=== PATIENT | female | born 1990 | race Two or more races ===

== ENCOUNTER 2016-11-03 21:18 | Inpatient (IN) | payer MEDICAID ==
[~2016-11-03] VITALS: Ht 165.1 cm; Wt 123.8 kg
[2016-11-03 22:17] LABS: Basophils # (auto) 0 uL; Basophils % (auto) 0.5 % (0.0-2.0); CONDITION Y; Eosinophils # (auto) 0.1 uL; Eosinophils % (auto) 1.6 % (0.0-7.0); Hemoglobin 11.9 g/dL (12.2-16.2); Lymphocytes # (auto) 1.2 uL; Lymphocytes % (auto) 13.5 % (10.0-50.0); Mean Corpuscular Hemoglobin 28.3 pg (28.0-32.0); Mean Platelet Volume 9.6 fL (7.4-10.4); Monocytes # (auto) 0.3 uL; Monocytes % (auto) 3.7 % (0.0-12.0); Neutrophils # (auto) 7.4 uL; Neutrophils % (auto) 80.7 % (37.0-80.0); Platelet Count (auto) 219 10^3/uL (140-450); Red Cell Distribution Width 14.1 % (11.6-16.0); White Blood Cell 9.2 10^3/uL (4.4-10.8)
[2016-11-03 22:30] LABS: Albumin 3.2 g/dL (3.4-5.0); Calcium 8.5 mg/dL (8.5-10.1); Potassium 3.8 mmol/L (3.5-5.1)
[2016-11-03 22:32] LABS: Bilirubin, Total 1.3 mg/dL (0.2-1.0); Total Protein 7.6 g/dL (6.4-8.2)
[2016-11-03 23:45] LABS: Urine Bilirubin Negative (Negative); Urine Blood TRACE /uL (Negative); Urine Color Yellow (Yellow); Urine Ketone Negative (Negative); Urine Mucus FEW (None Seen); Urine Nitrite Negative (Negative); Urine RBC 8 /hpf (0 - 4); Urine Squamous Epithelial Cell FEW /hpf (<5); Urine Urobilinogen Normal (Negative); Urine pH 5.5 (5.0-8.0)
[2016-11-03 23:47] LABS: Urine Glucose 4+ mg/dL (Normal)
[2016-11-04] MEDS: ONDANSETRON HCL 4 MG/2 ML VIAL IV PRN ×2 (06:30→10:59)
[2016-11-04] MEDS ORDERED: DEXTROSE (50%) 50ML SYRG IV PRN (06:30)
[2016-11-04] MEDS: MORPHINE SULFATE 4 MG/ML SYRG IV PRN ×3 (06:32→15:18)
[2016-11-04] MEDS: CLINDAMYCIN 600MG IV 50 ML IV SCH ×2 (06:43→15:19)
[2016-11-04] MEDS: SODIUM CHLORIDE 0.9% 1,000 ML IV SCH ×2 (06:43→13:17)
[2016-11-04] MEDS ORDERED: LISINOPRIL 20 MG TAB PO SCH (10:00)
[2016-11-04] MEDS ORDERED: ACCU-CHEK COMFORT CURVE STRIP VI SCH (12:00)
[2016-11-04] MEDS ORDERED: InsuLIN REG 1unit/0.01ml Soln (100units/ml) SC SCH (12:00)
[2016-11-04 13:00] VITALS: BP 119/65
[2016-11-04 13:18] VITALS: BP 119/65
[2016-11-04] MEDS ORDERED: cefTRIAXone 1GM/50ML D5W 50 ML IV ONE (16:15)
[2016-11-05] MEDS ORDERED: cefTRIAXone 1GM/50ML D5W 50 ML IV SCH (09:00)
== END 2016-11-04 17:00 | disposition left against medical advice (07) | DRG 720 ==
LOC: ER 21:22 → OVERFLOW 22:13 → WEST WING 11-04 12:45
PROVIDERS: ADMIT Family Medicine; ATTEND Family Medicine
DX: A41.9 Sepsis, unspecified organism (principal); E10.65 Type 1 diabetes mellitus with hyperglycemia; I10 Essential (primary) hypertension; L02.411 Cutaneous abscess of right axilla; N39.0 Urinary tract infection, site not specified; Z90.89 Acquired absence of other organs; Z71.89 Other specified counseling; Z53.21 Procedure and treatment not carried out due to patient leaving prior to being seen by health care provider
CPT/HCPCS: 36415; 80053; 81001; 82962; 83036; 84702; 85025; 96361; 96374; J2405; J3490